=== PATIENT | male | born 1990 | race Caucasian/White ===

== ENCOUNTER 2022-03-24 12:49 | Emergency (ER) | payer BC, OTHER ==
[2022-03-24] MEDS ORDERED: PANTOPRAZOLE 40 MG/10 ML VIAL IVP STA (13:40)
[2022-03-24] MEDS ORDERED: SODIUM CHLORIDE 0.9% 1,000 ML IV STA (13:40)
[2022-03-24] MEDS ORDERED: KETOROLAC 15 MG/ML 1 ML VIAL IVP STA (13:40)
[2022-03-24 13:55] LABS: Appearance,Urine Clear (Clear); Basophils % (A) 0 %; Bilirubin,Urine Negative (Negative); Blood,Urine Negative (Negative); Color,Urine Yellow; Eosinophils % (A) 0 %; Glucose,Urine (UA) Negative (Negative); HCT 44.7 % (39.0-53.0); HGB 15.3 gm/dL (13.0-17.5); Ketones,Urine Negative (Negative); Leukocyte Esterase,Urine Negative (Negative); Lymphocytes % (A) 12 %; MCH 31.9 pg (25.0-35.0); MCHC 34.3 g/dL (31.0-37.0); Mean Platelet Volume 8.1; Monocytes # (A) 0.6 k/uL (0-1.0); Monocytes % (A) 6 %; Neutrophils # (A) 6.9 k/uL (1.3-7.7); Neutrophils % (A) 79 %; Nitrite,Urine Negative (Negative); PH, Urine 6.5 (5.0-8.0); Platelet Count 249 k/uL (150-450); Protein,Urine Negative (Negative); RDW 12.9 % (11.5-15.5); Specific Gravity,Urine 1.014 (1.001-1.035); Urobilinogen,Urine <2.0 mg/dL (<2.0); WBC 8.7 k/uL (3.8-10.6)
[2022-03-24 14:07] LABS: ALT 24 U/L (4-49); AST 29 U/L (17-59); African American GFR (CKD) >90 (>60 ml/min/1.73 sqM); Albumin 5.1 g/dL (3.5-5.0); Alkaline Phosphatase 44 U/L (38-126); Amylase 63 U/L (30-110); Anion Gap 11 mmol/L; Blood Urea Nitrogen 19 mg/dL (9-20); Calcium 9.4 mg/dL (8.4-10.2); Carbon Dioxide 27 mmol/L (22-30); Chloride 100 mmol/L (98-107); Glucose 99 mg/dL (74-99); Lipase 37 U/L (23-300); Non-African American GFR(CKD) >90 (>60 ml/min/1.73 sqM); Potassium 4.5 mmol/L (3.5-5.1); Sodium 138 mmol/L (137-145); Total Bilirubin 0.5 mg/dL (0.2-1.3); Total Protein 7.4 g/dL (6.3-8.2)
[2022-03-24 14:08] LABS: Amphetamine Screen,Urine Not Detected (NotDetected); Barbiturate Screen,Urine Not Detected (NotDetected); Benzodiazepines Screen,Urine Not Detected (NotDetected); Cocaine Screen,Urine Not Detected (NotDetected); Methadone Screen, Urine Not Detected (NotDetected); Opiate Screen,Urine Not Detected (NotDetected); Oxycodone Screen, Urine Not Detected (NotDetected); Phencyclidine Screen,Urine Not Detected (NotDetected); Tricyclic Antidepressant,Urine Not Detected (NotDetected); Urn Cannabinoid Scrn Detected (NotDetected)
--- NOTE | 2022-03-24 14:34 | CT ---
EXAMINATION TYPE: CT abdomen pelvis w con CT DLP: 1007.6 mGycm, Automated exposure control for dose reduction was used. DATE OF EXAM: 03/24/2022 2:17 PM COMPARISON: None CLINICAL INDICATION:Male, 32 years old with history of Abdominal pain, loss of appetite; Right lower quadrant pain, weight loss TECHNIQUE: Axial CT of the abdomen and pelvis. Sagittal and coronal reformats were created on a [employer] workstation. Contrast used:100 mL of Isovue 300 with IV Contrast, Oral contrast used: without Oral Contrast FINDINGS: LOWER CHEST: Unremarkable ABDOMEN LIVER: Unremarkable GALLBLADDER AND BILE DUCTS: Unremarkable. PANCREAS: Unremarkable. SPLEEN: Small splenule is present. 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 KIDNEYS AND URETERS: No evidence of hydronephrosis or renal calculus. The ureters are unremarkable. PELVIS BLADDER: Unremarkable REPRODUCTIVE: Unremarkable. ABDOMEN & PELVIS STOMACH AND BOWEL: There is protrusion of the ileum into the cecum measuring up to 2.3 cm. No eviden ce of bowel obstruction. Appendix is normal. PERITONEUM: No evidence of pneumoperitoneum or free fluid. VASCULATURE: No evidence of aortic aneurysm. MUSCULOSKELETAL: No acute osseous abnormalities, focus of gas is seen within the right posterior yodit c bone. LYMPH NODES: No gross evidence for lymphadenopathy. SOFT TISSUE/ABDOMINAL WALL: Unremarkable IMPRESSION: There is increased protrusion of the ileum into the cecum measuring up to 2.3 cm. Findings suggestive of small ileocecal intussusception. Correlate clinically.
--- NOTE | 2022-03-24 14:35 | ED ---
Abdominal Pain HPI - General Chief Complaint: Abdominal Pain Stated Complaint: Abd pain, weight loss Time Seen by Provider: 03/24/22 13:08 Source: patient, family, RN notes reviewed Mode of arrival: ambulatory Limitations: no limitations - History of Present Illness Initial Comments: This is a 32-year-old male who presents to the emergency department for abdominal pain and weight loss. States that over the last 2 months, he has lost 10-20 pounds. He initially had diarrhea, however he saw his primary care provider a couple of days ago, who ordered an abdominal x-ray. The x-ray showed him to be constipated. He does note that his stools have seemed firmer over the last couple of days. He is also taking Metamucil. When he woke up today, he started to have pain in the right lower quadrant radiating into the back. States that he has never had pain associated with these symptoms before, which is what concerned him. He is awaiting an appointment with a barman due to his symptoms. Reports a family history of stomach cancer, which scares him. Denies any fevers, chills, sore throat, cough, dyspnea, chest pain, palpita tions, nausea, vomiting, or headaches. MD Complaint: abdominal pain Location: RLQ Radiation: back Associated Symptoms: diarrhea - Related Data Home Medications Medication Instructions Recorded Confirmed Acetaminophen Tab [Tylenol] 500 mg PO DIRECTED PRN 05/04/14 05/04/14 Previous Rx's Medication Instructions Recorded Ibuprofen [Motrin] 600 mg PO Q6HR PRN #40 day 05/04/14 Famotidine 40 mg PO Q24H 14 Days #14 tablet 03/24/22 Lactulose 20 gm PO Q24H PRN #473 ml 03/24/22 Allergies Allergy/AdvReac Type Severity Reaction Status Date / Time No Known Allergies Allergy Verified 05/04/14 14:46 Review of Systems ROS Statement: Those systems with pertinent positive or pertinent negative responses have been documented in the HPI. ROS Other: All systems not noted in ROS Statement are negative. Past Medical History Past Medical History: No Reported History History of Any Multi-Drug Resistant Organisms: None Reported Past Surgical History: No Surgical Hx Reported Past Psychological History: No Psychological Hx Reported Past Alcohol Use History: Occasional Past Drug Use History: Marijuana General Exam Limitations: no limitations General appearance: alert, in no apparent distress Head exam: Present: atraumatic, normocephalic, normal inspection Respiratory exam: Present: normal lung sounds bilaterally. Absent: respiratory distress, wheezes, rales, rhonchi, stridor Cardiovascular Exam: Present: regular rate, normal rhythm, normal heart sounds. Absent: systolic murmur, diastolic murmur, rubs, gallop, clicks GI/Abdominal exam: Present: soft, normal bowel sounds. Absent: distended, tenderness, guarding, rebound, rigid Neurological exam: Present: alert, oriented X3, CN II-XII intact Psychiatric exam: Present: normal affect, normal mood Skin exam: Present: warm, dry, intact, normal color. Absent: rash Course Vital Signs 03/24/22 03/24/22 13:02 15:38 Temperature 98.2 F 98 F Pulse Rate 100 78 Respiratory 20 18 Rate Blood Pressure 140/77 122/70 O2 Sat by Pulse 99 97 Oximetry Medical Decision Making - Medical Decision Making This is a 32-year-old male who presents the emergency department for abdominal pain and weight loss. Patient's lab work was nonactionable. Computed tomography scan of the abdomen and pelvis obtained, revealing a possible ileocecal intussusception. Case discussed with Dr. Villarreal, who advised that this is a transient finding and no intervention is warranted at this time. Patient has no signs of a bowel obstruction. Prescription for lactulose provided. I did inform him that this may cause increased abdominal pain, bloating, and gas, however it should treat the constipation. He can continue taking the Metamucil, but should be sure to get plenty of fluid intake. Prescription for Pepcid provided as well to help with the acid reflux, bloating, and gas. He'll take this daily for the next 2 weeks. Also recommended adding a probiotic to his diet. He will follow up with gastroenterology as scheduled as soon as he is given an official appointment. We discussed that there are still plenty of studies to be performed on an outpatient basis to further evaluate these ongoing symptoms. Return precautions reviewed in depth, the patient is instructed to return to the emergency department with any new, worsening, or concerning symptoms. Patient verbalized understanding. This case was discussed in detail with the attending ED physician. Presentation, findings, and treatment plan discussed in detail as well. - Lab Data Result diagrams: 03/24/22 13:47 03/24/22 13:47 Lab Results 03/24/22 03/24/22 03/24/22 Range/Units 13:47 13:47 13:47 WBC 8.7 (3.8-10.6) k/uL RBC 4.80 (4.30-5.90) m/uL Hgb 15.3 (13.0-17.5) gm/dL Hct 44.7 (39.0-53.0) % MCV 93.0 (80.0-100.0) fL MCH 31.9 (25.0-35.0) pg MCHC 34.3 (31.0-37.0) g/dL RDW 12.9 (11.5-15.5) % Plt Count 249 (150-450) k/uL MPV 8.1 Neutrophils % 79 % Lymphocytes % 12 % Monocytes % 6 % Eosinophils % 0 % Basophils % 0 % Neutrophils # 6.9 (1.3-7.7) k/uL Lymphocytes # 1.0 (1.0-4.8) k/uL Monocytes # 0.6 (0-1.0) k/uL Eosinophils # 0.0 (0-0.7) k/uL Basophils # 0.0 (0-0.2) k/uL Sodium 138 (137-145) mmol/L Potassium 4.5 (3.5-5.1) mmol/L Chloride 100 (98-107) mmol/L Carbon Dioxide 27 (22-30) mmol/L Anion Gap 11 mmol/L BUN 19 (9-20) mg/dL Creatinine 0.82 (0.66-1.25) mg/dL Est GFR (CKD-EPI)AfAm >90 (>60 ml/min/1.73 sqM) Est GFR (CKD-EPI)NonAf >90 (>60 ml/min/1.73 sqM) Glucose 99 (74-99) mg/dL Calcium 9.4 (8.4-10.2) mg/dL Total Bilirubin 0.5 (0.2-1.3) mg/dL AST 29 (17-59) U/L ALT 24 (4-49) U/L Alkaline Phosphatase 44 (38-126) U/L Total Protein 7.4 (6.3-8.2) g/dL Albumin 5.1 H (3.5-5.0) g/dL Amylase 63 (30-110) U/L Lipase 37 (23-300) U/L TSH 0.668 (0.465-4.680) mIU/L Urine Color Yellow Urine Appearance Clear (Clear) Urine pH 6.5 (5.0-8.0) Ur Specific [place] 1.014 (1.001-1.035) Urine Protein Negative (Negative) Urine Glucose (UA) Negative (Negative) Urine Ketones Negative (Negative) Urine Blood Negative (Negative) Urine Nitrite Negative (Negative) Urine Bilirubin Negative (Negative) Urine Urobilinogen <2.0 (<2.0) mg/dL Ur Leukocyte Esterase Negative (Negative) Urine Opiates Screen Not Detected (NotDetected) Ur Oxycodone Screen Not Detected (NotDetected) Urine Methadone Screen Not Detected (NotDetected) Ur Propoxyphene Screen Not Detected (NotDetected) Ur Barbiturates Screen Not Detected (NotDetected) U Tricyclic Antidepress Not Detected (NotDetected) Ur Phencyclidine Scrn Not Detected (NotDetected) Ur Amphetamines Screen Not Detected (NotDetected) U Methamphetamines Scrn Not Detected (NotDetected) U Benzodiazepines Scrn Not Detected (NotDetected) Urine Cocaine Screen Not Detected (NotDetected) U Marijuana (THC) Screen Detected H (NotDetected) - Radiology Data Radiology results: report reviewed, image reviewed Disposition Clinical Impression: Abdominal pain Disposition: HOME SELF-CARE Instructions (If sedation given, give patient instructions): Constipation (ED), High Fiber Diet (ED), Abdominal Pain (ED) Additional Instructions: Return to the emergency department with any new, worsening, or concerning symptoms. Take the lactulose daily until you begin to produce soft bowel movements. Be aware that this may temporarily cause diarrhea, gas, increased abdominal pain, and bloating. You can continue taking the Metamucil, however make sure that you remain well-hydrated when taking this. Take the Pepcid daily for 2 weeks. This will help with feelings of heartburn, bloating, and gas. You can also add a probiotic supplement to your diet. Follow up with your primary care provider in 1-2 days and the barman as scheduled. Prescriptions: Famotidine 40 mg PO Q24H 14 Days #14 tablet Lactulose 20 gm PO Q24H PRN #473 ml PRN Reason: Constipation Is patient prescribed a controlled substance at d/c from ED?: No Referrals: Nonstaff,Physician [Primary Care Provider] - 1-2 days
[2022-03-24 15:39] VITALS: BP 122/70; PULSE 78; RESP 18; TEMP 98
== END 2022-03-24 15:39 | disposition home or self-care (01) ==
LOC: EC 12:49
DX: R10.31 Right lower quadrant pain (principal); F12.90 Cannabis use, unspecified, uncomplicated
CPT/HCPCS: 36415; 80053; 84443; 82150; 83690; 85025; 81003; 80306; 74177; 99284; 96374; 96361; C9113; Q9967

== ENCOUNTER 2022-11-22 10:21 | Emergency (ER) | payer OTHER ==
[2022-11-22 10:33] VITALS: TEMP 98
[2022-11-22] MEDS ORDERED: KETOROLAC 15 MG/ML 1 ML VIAL IVP STA (11:04)
[2022-11-22] MEDS ORDERED: diphenhydrAMINE 50 MG/ML 1 ML VIAL IVP STA (11:04)
[2022-11-22] MEDS ORDERED: METOCLOPRAMIDE 5 MG/ML 2 ML VIAL IVP STA (11:04)
[2022-11-22] MEDS ORDERED: DEXAMETHASONE SOD PHOSPHATE 10 MG/ML 1 ML VIAL IVP STA (11:04)
[2022-11-22] MEDS ORDERED: SODIUM CHLORIDE 0.9% 1,000 ML IV STA (11:04)
--- NOTE | 2022-11-22 11:28 | ED ---
Headache HPI - General Chief Complaint: Headache Stated Complaint: headaches,sent by PCP Time Seen by Provider: 11/22/22 10:56 Source: patient, RN notes reviewed Mode of arrival: ambulatory Limitations: no limitations - History of Present Illness Initial Comments: This is a 32-year-old male who presents to the emergency department for a headache. Patient states that about 5 days ago, he suddenly started to develop severe headaches. The headaches are intermittent in nature. However, the pain becomes so severe that he drops to the floor. Denies any visual changes. Prior to this he had never had problems with headaches. He saw his primary care lupe hay who started him on Nurtec ODT. When he first took this, he did start to have some relief. However, when he had the headache today, he had no improvement with the Nurtec. He also tried taking Excedrin migraine. He was told by his PCP to come to the emergency department for further evaluation and a computed tomography scan of the head. Denies any fevers, chills, sore throat, cough, dyspnea, chest pain, palpitations, abdominal pain, nausea, vomiting, diarrhea, or back pain. MD Complaint: headache - Related Data Home Medications Medication Instructions Recorded Confirmed Acetaminophen Tab [Tylenol] 500 mg PO DIRECTED PRN 05/04/14 05/04/14 Previous Rx's Medication Instructions Recorded Ibuprofen [Motrin] 600 mg PO Q6HR PRN #40 day 05/04/14 Famotidine 40 mg PO Q24H 14 Days #14 tablet 03/24/22 Lactulose 20 gm PO Q24H PRN #473 ml 03/24/22 Ketorolac [Toradol] 10 mg PO Q6HR PRN #15 tab 11/22/22 Allergies Allergy/AdvReac Type Severity Reaction Status Date / Time No Known Allergies Allergy Verified 05/04/14 14:46 Review of Systems ROS Statement: Those systems with pertinent positive or pertinent negative responses have been documented in the HPI. ROS Other: All systems not noted in ROS Statement are negative. Past Medical History Past Medical History: No Reported History Additional Past Medical History / Comment(s): migraine History of Any Multi-Drug Resistant Organisms: None Reported Past Surgical History: No Surgical Hx Reported Past Psychological History: No Psychological Hx Reported Past Alcohol Use History: Occasional Past Drug Use History: Marijuana General Exam Limitations: no limitations General appearance: alert, in no apparent distress Head exam: Present: atraumatic, normocephalic, normal inspection Eye exam: Present: normal appearance, PERRL, EOMI. Absent: scleral icterus, conjunctival injection, periorbital swelling Respiratory exam: Present: normal lung sounds bilaterally. Absent: respiratory distress, wheezes, rales, rhonchi, stridor Cardiovascular Exam: Present: regular rate, normal rhythm, normal heart sounds. Absent: systolic murmur, diastolic murmur, rubs, gallop, clicks Neurological exam: Present: alert, oriented X3, CN II-XII intact Psychiatric exam: Present: normal affect, normal mood Skin exam: Present: warm, dry, intact, normal color. Absent: rash Course Vital Signs 11/22/22 11/22/22 10:31 13:17 Temperature 98 F Pulse Rate 68 57 L Respiratory 16 18 Rate Blood Pressure 142/84 114/61 O2 Sat by Pulse 100 99 Oximetry Medical Decision Making - Medical Decision Making This is a 32-year-old male who presents to the emergency department for headach es. Was pt. sent in by a medical professional or institution? @ -His PCP Did you speak to anyone other than the patient for history? @ -No Did you review nursing and triage notes? @ -Yes, and I agree, it is accurate with regards to the patient's symptoms. Were old charts reviewed? @ -No Differential Diagnosis? @ -Differential Headache: Migraine, tension, cluster, carbon monoxide, central venous thrombosis, pension karma temporal arteritis, acute closure glaucoma, intercranial hemorrhage, mastoiditis, sinusitis, head injury, this is not meant to be an all-inclusive list. EKG interpreted by me (3pts min.)? @ -Not obtained X-rays interpreted by me (1pt min.)? @ -Not obtained CT interpreted by me (1pt min.)? @ -CT scan of the brain and CT angiogram of the head were obtained. My int erpretation identifies no evidence of an acute intracranial hemorrhage or ischemic changes. U/S interpreted by me (1pt. min.)? @ -Not obtained What testing was considered but not performed? (CT, X-rays, U/S, labs)? Why? @ -None What meds were considered but not given? Why? @ -None Did you discuss the management of the patient with other professionals? @ -No Did you reconcile home meds? @ -No Was smoking cessation discussed for >3mins.? @ -No Was critical care preformed (if so, how long)? @ -No Were there social determinants of health that impacted care today? How? (Homelessness, low income, unemployed, alcoholism, drug addiction, transportation, low edu. Level, literacy, decrease access to med. care, skilled nursing, rehab)? @ -No Was there de-escalation of care discussed even if they declined? (Discuss DNR or withdrawal of care, Hospice)? @ -No What co-morbidities impacted this encounter? (DM, HTN, Smoking, COPD, CAD, Cancer, CVA, Hep., AIDS, mental health diagnosis, sleep apnea, morbid obesity)? @ -None Was patient admitted / discharged? @ -Discharged. Given that his headaches started suddenly about 5 days ago, we did obtain blood work and a computed tomography scan of the brain without contrast and a CTA of the head. 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 She was given a migraine cocktail consisting of IV fluids, Toradol, Reglan, Decadron, and Benadryl, with resolution of the headache. Rx for Toradol provided with dosing instructions reviewed. Advised he can also continue to take the Nurtec ODT. He will otherwise follow up with his primary care provider for reevaluation. Undiagnosed new problem with uncertain prognosis? @ -None Drug Therapy requiring intensive monitoring for toxicity (Heparin, Nitro, Insulin, Cardizem)? @ -None Were any procedures done? @ -None Diagnosis/symptom? @ -Headache Acute, or Chronic, or Acute on Chronic? @ -Acute Uncomplicated (without systemic symptoms) or Complicated (systemic symptoms)? @ -Uncomplicated Side effects of treatment? @ -None Exacerbation, Progression, or Severe Exacerbation] @ -Not applicable Poses a threat to life or bodily function? @ -No Return precautions reviewed in depth, the patient is instructed to return to the emergency department with any new, worsening, or concerning symptoms. Patient verbalized understanding. This case was discussed in detail with the attending ED physician, Dr. Whiting. Presentation, findings, and treatment plan discussed in detail as well. - Lab Data Result diagrams: 11/22/22 11:25 11/22/22 11:25 Lab Results 11/22/22 11/22/22 11/22/22 Range/Units 11:25 11:25 11:25 WBC 11.9 H (3.8-10.6) k/uL RBC 4.75 (4.30-5.90) m/uL Hgb 14.8 (13.0-17.5) gm/dL Hct 44.2 (39.0-53.0) % MCV 93.1 (80.0-100.0) fL MCH 31.1 (25.0-35.0) pg MCHC 33.4 (31.0-37.0) g/dL RDW 13.1 (11.5-15.5) % Plt Count 207 (150-450) k/uL MPV 7.9 Neutrophils % 82 % Lymphocytes % 9 % Monocytes % 6 % Eosinophils % 0 % Basophils % 0 % Neutrophils # 9.8 H (1.3-7.7) k/uL Lymphocytes # 1.1 (1.0-4.8) k/uL Monocytes # 0.7 (0-1.0) k/uL Eosinophils # 0.0 (0-0.7) k/uL Basophils # 0.0 (0-0.2) k/uL Sodium 139 (137-145) mmol/L Potassium 4.8 (3.5-5.1) mmol/L Chloride 104 (98-107) mmol/L Carbon Dioxide 25 (22-30) mmol/L Anion Gap 10 mmol/L BUN 16 (9-20) mg/dL Creatinine 0.83 (0.66-1.25) mg/dL Est GFR (CKD-EPI)AfAm >90 (>60 ml/min/1.73 sqM) Est GFR (CKD-EPI)NonAf >90 (>60 ml/min/1.73 sqM) Glucose 109 H (74-99) mg/dL Plasma Lactic Acid Fabricio 1.0 (0.7-2.0) mmol/L Calcium 10.0 (8.4-10.2) mg/dL Total Bilirubin 0.6 (0.2-1.3) mg/dL AST 29 (17-59) U/L ALT 21 (4-49) U/L Alkaline Phosphatase 45 (38-126) U/L C-Reactive Protein <0.5 (<1.0) mg/dL Total Protein 7.7 (6.3-8.2) g/dL Albumin 4.9 (3.5-5.0) g/dL - Radiology Data Radiology results: report reviewed, image reviewed Disposition Clinical Impression: Headache Disposition: HOME SELF-CARE Instructions (If sedation given, give patient instructions): Acute Headache (ED) Additional Instructions: Return to the emergency department with any new, worsening, or concerning symptoms. You can try taking the Toradol if the headache returns. Do not take this with any other [id number] anti-inflammatories such as ibuprofen. Take one or the other. Follow up with your primary care provider in 1-2 days. Prescriptions: Ketorolac [Toradol] 10 mg PO Q6HR PRN #15 tab PRN Reason: Pain Is patient prescribed a controlled substance at d/c from ED?: No Referrals: Esmer Garza MD [Primary Care Provider] - 1-2 days
[2022-11-22 11:58] LABS: Basophils % (A) 0 %; Eosinophils % (A) 0 %; HCT 44.2 % (39.0-53.0); HGB 14.8 gm/dL (13.0-17.5); Lymphocytes # (A) 1.1 k/uL (1.0-4.8); Lymphocytes % (A) 9 %; MCH 31.1 pg (25.0-35.0); MCHC 33.4 g/dL (31.0-37.0); MCV 93.1 fL (80.0-100.0); Mean Platelet Volume 7.9; Monocytes # (A) 0.7 k/uL (0-1.0); Monocytes % (A) 6 %; Neutrophils # (A) 9.8 k/uL (1.3-7.7); Neutrophils % (A) 82 %; Platelet Count 207 k/uL (150-450); RBC 4.75 m/uL (4.30-5.90); RDW 13.1 % (11.5-15.5); WBC 11.9 k/uL (3.8-10.6)
[2022-11-22 12:16] LABS: ALT 21 U/L (4-49); AST 29 U/L (17-59); African American GFR (CKD) >90 (>60 ml/min/1.73 sqM); Albumin 4.9 g/dL (3.5-5.0); Alkaline Phosphatase 45 U/L (38-126); Anion Gap 10 mmol/L; Blood Urea Nitrogen 16 mg/dL (9-20); C Reactive Protein <0.5 mg/dL (<1.0); Carbon Dioxide 25 mmol/L (22-30); Chloride 104 mmol/L (98-107); Glucose 109 mg/dL (74-99); Non-African American GFR(CKD) >90 (>60 ml/min/1.73 sqM); Potassium 4.8 mmol/L (3.5-5.1); Sodium 139 mmol/L (137-145); Total Bilirubin 0.6 mg/dL (0.2-1.3); Total Protein 7.7 g/dL (6.3-8.2)
--- NOTE | 2022-11-22 12:29 | CT ---
EXAMINATION TYPE: CT brain wo con DATE OF EXAM: 11/22/2022 COMPARISON: 05/04/2014 HISTORY: 32-year-old male Acute onset headache TECHNIQUE: Examination was done in axial plane without intravenous contrast. Coronal and sagittal r econstructions performed. CT DLP: 1231.9 mGycm Automated exposure control for dose reduction was used. FINDINGS: There is no evidence of acute intracranial hemorrhage, acute ischemic changes, mass, mass-effect, or extra-axial fluid collection. There is no effacement of cerebral sulci or basal subarachnoid cister ns. There is no hydrocephalus. There is no midline shift. Medrano-white matter distinction is preserv ed. Mild mucosal thickening floors of the maxillary sinuses. Mastoid air cells well pneumatized. Orbits a nd globes are intact. IMPRESSION: No acute intracranial abnormality seen.
[2022-11-22 13:22] VITALS: BP 114/61; PULSE 57; RESP 18
--- NOTE | 2022-11-22 13:35 | CT ---
EXAMINATION TYPE: CT angio head DATE OF EXAM: 11/22/2022 COMPARISON: CT same day HISTORY: 32-year-old male Acute onset headache TECHNIQUE: Contiguous axial scanning of the head performed with IV Contrast, patient injected with 10 0 ml mL of Isovue 370. Coronal/sagittal reconstructions performed. 3-D reconstructions generated on a dedicated independent workstation. CT DLP: 694.50 mGycm Automated exposure control for dose reduction was used. FINDINGS: There is a dominant right vertebral artery. The V4 segment left vertebral artery becomes even more hy poplastic. Somewhat congenitally small caliber to the vertebral artery. Persistent origin right posterior cerebral artery. Remainder of the posterior circulation other woodard patent. Bilateral internal carotid arteries are patent. Remainder of the anterior circulation is patent. Dural venous sinuses are patent. No aneurysmal changes identified. 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 NO LARGE VESSEL INTRACRANIAL ARTERIAL OCCLUSION, SIGNIFICANT STENOSIS, OR ANEURYSMAL CHANGE IS SEE N.
== END 2022-11-22 14:19 | disposition home or self-care (01) ==
LOC: EC 10:21
DX: R51.9 Headache, unspecified (principal); F12.90 Cannabis use, unspecified, uncomplicated
CPT/HCPCS: 36415; 80053; 83605; 85025; 86140; 70496; 70450; 99284; 96374; 96375 ×3; 96361; J1200; J1100; J2765; J1885; Q9967